=== PATIENT | female | born 1970 | race American Indian/Alaskan Native ===

== ENCOUNTER 2016-06-29 15:29 | Emergency (ER) | payer OTHER ==
[2016-06-30 00:48] VITALS: BP 131/64
--- NOTE | 2016-06-30 01:09 | Emergency Department Report ---
ED General Adult HPI - General Chief complaint: High BP Stated complaint: ELEV BP/SOB Time Seen by Provider: 06/30/16 00:48 Source: patient Mode of arrival: Ambulatory Limitations: No Limitations - History of Present Illness Initial comments: Patient complains of 2 day history of eye redness. She states the right is more than the left. She denies any vision changes she denies any drainage or discharge. Denies history of allergies in general. She states that she did have an episode yesterday and fatigued and had some difficulty with concentration for about an hour. Patient contributes both of these symptoms to her high blood pressure. She states she is on 3 drug regimen for this but continues to have elevated blood pressure. She reports a normal blood pressure being in the 160/to 90-100 range. She denies any headache she denies any chest pain at this time. She reports normal urination. She does have a primary doctor she follows with. Onset/Timin -: days(s) Location: eyes Radiation: non-radiation Severity scale (0 -10): 5 Quality: burning Consistency: constant Improves with: none Worsens with: none Associated Symptoms: denies: confusion, chest pain, cough, headaches Treatments Prior to Arrival: none - Related Data Home Medications Medication Instructions Recorded Confirmed Last Taken Famotidine [Pepcid] 40 mg PO QHS 06/30/16 06/30/16 06/29/16 Lisinopril [Zestril TAB] 20 mg PO QDAY 06/30/16 06/30/16 06/29/16 Pravastatin Sodium [Pravastatin] 10 mg PO QHS 06/30/16 06/30/16 06/28/16 amLODIPine [Norvasc] 5 mg PO DAILY 06/30/16 06/30/16 06/28/16 Previous Rx's Medication Instructions Recorded Last Taken Type Meclizine [Antivert] 25 mg PO TID PRN #10 tablet 02/26/16 06/29/16 Rx Erythromycin [Erythromycin Ophth 1 applic OU QID #1 tube 06/30/16 Unknown Rx Oint] Hydrochlorothiazide [HCTZ] 2 tab PO QDAY #60 tablet 06/30/16 Unknown Rx Loratadine [Claritin] 10 mg PO DAILY #20 tablet 06/30/16 Unknown Rx Allergies Allergy/AdvReac Type Severity Reaction Status Date / Time No Known Allergies Allergy Verified 06/29/16 17:04 ED Review of Systems ROS: Stated complaint: ELEV BP/SOB Other details as noted in HPI Constitutional: denies: chills, fever Eyes: eye pain ENT: denies: ear pain, throat pain Respiratory: denies: cough, shortness of breath, wheezing Cardiovascular: denies: chest pain, palpitations Endocrine: no symptoms reported, unexplained weight gain Gastrointestinal: denies: abdominal pain, nausea, diarrhea Genitourinary: denies: urgency, dysuria, discharge Musculoskeletal: other (mild leg swelling). denies: back pain, joint swelling, arthralgia Skin: denies: rash, lesions Neurological: denies: headache, weakness, paresthesias Psychiatric: denies: anxiety, depression Hematological/Lymphatic: denies: easy bleeding, easy bruising ED Past Medical Hx - Past Medical History Hx Hypertension: Yes Additional medical history: VERTIGO. MORBID OBESITY - Surgical History Past Surgical History?: No - Social History Smoking Status: Never Smoker Substance Use Type: None - Medications Home Medications: Home Medications Medication Instructions Recorded Confirmed Last Taken Type Meclizine [Antivert] 25 mg PO TID PRN #10 tablet 02/26/16 06/30/16 06/29/16 Rx Erythromycin [Erythromycin Ophth 1 applic OU QID #1 tube 06/30/16 Unknown Rx Oint] Famotidine [Pepcid] 40 mg PO QHS 06/30/16 06/30/16 06/29/16 History Hydrochlorothiazide [HCTZ] 2 tab PO QDAY #60 tablet 06/30/16 Unknown Rx Lisinopril [Zestril TAB] 20 mg PO QDAY 06/30/16 06/30/16 06/29/16 History Loratadine [Claritin] 10 mg PO DAILY #20 tablet 06/30/16 Unknown Rx Pravastatin Sodium [Pravastatin] 10 mg PO QHS 06/30/16 06/30/16 06/28/16 History amLODIPine [Norvasc] 5 mg PO DAILY 06/30/16 06/30/16 06/28/16 History ED Physical Exam - General Limitations: No Limitations General appearance: alert, in no apparent distress, obese (morbid) - Head Head exam: Present: atraumatic, normocephalic - Eye Eye exam: Present: normal appearance, PERRL, EOMI, other (mild scleral injection bilat with R>L. Fundoscopic exam with prominent vasculature. Weld disc cup margin.). Absent: scleral icterus, conjunctival injection, periorbital tenderness Pupils: Present: normal accommodation - ENT ENT exam: Present: normal orophraynx, mucous membranes moist - Neck Neck exam: Present: normal inspection - Respiratory Respiratory exam: Present: normal lung sounds bilaterally. Absent: respiratory distress - Cardiovascular Cardiovascular Exam: Present: regular rate, normal rhythm. Absent: systolic murmur, diastolic murmur, rubs, gallop - GI/Abdominal GI/Abdominal exam: Present: soft, normal bowel sounds - Extremities Exam Extremities exam: Present: normal inspection, pedal edema (trace) - Back Exam Back exam: Present: normal inspection - Neurological Exam Neurological exam: Present: alert, oriented X3 - Psychiatric Psychiatric exam: Present: normal affect, normal mood - Skin Skin exam: Present: warm, dry, intact, normal color. Absent: rash ED Course Vital Signs 06/29/16 06/30/16 06/30/16 16:57 00:45 01:43 Temperature 98.0 F 98.0 F Pulse Rate 89 79 Respiratory 18 20 18 Rate Blood Pressure 144/97 Blood Pressure 131/64 [Left] O2 Sat by Pulse 100 98 98 Oximetry - Reevaluation(s) Reevaluation #1: 06/30/16 02:10 Patient perseverates about her blood pressure here. I do not suspect this is the etiology of her eye redness. Believe me when I indicate this either. L her on an antihistamine as well as some lubrication with antibiotics. I really don't suspect an infectious etiology either. In regards to her blood pressure she is already on 3 drug regimen. I did encourage her to increase her hydrochlorothiazide from 25 mg to 50 mg daily. I did encourage her to follow- up with her physician for consideration of other medications. There is some funduscopic evidence of some chronic disease due to her hypertension. I did encourage her to follow up with ophthalmology as well at her convenience. Safe for home. Critical care attestation.: If time is entered above; I have spent that time in minutes in the direct care of this critically ill patient, excluding procedure time. ED Disposition Clinical Impression: Eye redness Hypertension Qualifiers: Hypertension type: essential hypertension Qualified Code(s): I10 - Essential ( primary) hypertension Disposition: DISCHARGED TO HOME OR SELFCARE Is pt being admited?: No Does the pt Need Aspirin: No Condition: Stable Instructions: Hypertension (ED) Additional Instructions: I want you to increase her hydrochlorothiazide from 25 mg daily to 50 mg daily. I have written a prescription for this. Please keep a log of your blood pressure at different times of the day. Follow with your physician for further evaluation and consideration of other medications. I would suggest that you try the ointment for the eyes for the next 3 days as well as the loratadine for possible allergic component. Prescriptions: Erythromycin [Erythromycin Ophth Oint] 1 applic OU QID #1 tube Hydrochlorothiazide [HCTZ] 2 tab PO QDAY #60 tablet Loratadine [Claritin] 10 mg PO DAILY #20 tablet Referrals: VALENTINO PORRAS MD, PHD [Primary Care Provider] - 3-5 Days Forms: Work/School Release Form(ED) Time of Disposition: 01:08
[2016-06-30] MEDS: CLARITIN PO ONE (01:42)
[2016-06-30] MEDS: ERYTHROMYCIN OPHTH OINT OU ONE (01:43)
== END 2016-06-30 01:48 | disposition home or self-care (01) ==
LOC: ED 15:29
DX: I10 Essential (primary) hypertension (principal); H57.8 Other specified disorders of eye and adnexa; M79.89 Other specified soft tissue disorders; E66.01 Morbid (severe) obesity due to excess calories
CPT/HCPCS: 99282

== ENCOUNTER 2017-05-14 08:57 | Emergency (ER) | payer OTHER ==
[2017-05-14 09:10] VITALS: BP 167/89
[2017-05-14] MEDS ORDERED: TORADOL IM ONE (09:39)
[2017-05-14] MEDS ORDERED: ULTRAM PO ONE (09:39)
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
--- NOTE | 2017-05-14 13:17 | XRay Report ---
CERVICAL SPINE RADIOGRAPHS INDICATION: Neck pain. COMPARISON: None similar. FINDINGS: AP, lateral, open mouth and swimmers view of the cervical spine, 5 projections demonstrate normal imaged dens with symmetric lateral masses, allowing for overlying structures. Few radiopaque dental fillings. Normal prevertebral soft tissues and airway. Slight cervical spine straightening, possibly positional versus spasm. C5-C6 disc narrowing and degenerative spurring noted. Normal remainder upper cervical disc heights. Assessment below C6 though suboptimal/obscured due to shoulder soft tissues. Clear visualized lung apices. CONCLUSION: No acute cervical spine radiographic abnormality, to the extent assessed, with C5-C6 degenerative changes noted. Please correlate. Thank you for the opportunity to participate in this patient's care.
== END 2017-05-14 11:02 | disposition home or self-care (01) ==
LOC: ED 08:57
DX: M54.89 Other dorsalgia (principal); I10 Essential (primary) hypertension; J44.9 Chronic obstructive pulmonary disease, unspecified; E66.01 Morbid (severe) obesity due to excess calories; V79.69XA Unspecified bus occupant injured in collision with other motor vehicles in traffic accident, initial encounter; Y93.89 Activity, other specified; Y92.89 Other specified places as the place of occurrence of the external cause; Y99.8 Other external cause status
CPT/HCPCS: 72040; 96372; 99283; J1885

== ENCOUNTER 2018-06-06 13:54 | Outpatient (CLI) | payer OTHER ==
--- NOTE | 2018-06-07 14:50 | Mammography Report ---
BILATERAL DIGITAL SCREENING MAMMOGRAM with CAD: 06/06/18 13:54:00 CLINICAL: Routine screening. COMPARISON:None available. FINDINGS: The breasts are almost entirely fatty. No mass, architectural distortion or suspicious calcifications. IMPRESSION: No mammographic evidence of malignancy. BI-RADS CATEGORY: 1 - - Negative RECOMMENDATION: Routine mammographic screening in one year. COMMENT: Patient follow-up letters are generated by our [employer] application.
== END 2018-06-06 13:55 | disposition home or self-care (01) ==
LOC: SPVWC 13:54
DX: Z12.31 Encounter for screening mammogram for malignant neoplasm of breast (principal)
CPT/HCPCS: 77067

== ENCOUNTER 2020-10-26 17:10 | Emergency (ER) | payer BC ==
--- NOTE | 2020-10-26 19:03 | Event Note ---
ED Screening Note Date of service: 10/26/20 Time: 19:02 ED Screening Note: 50-year-old female patient with history of kidney stones, pyelonephritis, hypertension, and BMI >30 presents to the emergency department complaints of nontraumatic right lower back pain with associated nausea for approximately 1 week. Patient states her symptoms are not consistent with prior kidney stones. Patient is postmenopausal. General: Awake, appropriately interactive, no acute distress. Neck: Supple. Full range of motion intact. Cardiovascular: Normal peripheral perfusion. Pulmonary: No respiratory distress. Patient is speaking normally without use of accessory muscles. Skin: No apparent rashes or lesions. Neurological: No facial asymmetry. Speech is clear. Follows commands. Patient is alert and oriented. Musculoskeletal: Moves all four extremities spontaneously with normal range of motion. Back: Right lower lumbar tenderness. Psych: Cooperative. Appropriate mood and affect. I have greeted and performed a focused rapid initial assessment of this patient. A comprehensive ED assessment and evaluation of the patient, analysis of all test results, and completion of the medical decision-making process will be conducted by additional ED providers. This initial assessment/diagnostic orders/ clinical plan/treatment(s) is/are subject to change based on patients health status, clinical progression and re-assessment. Further treatment and workup at subsequent clinical provider's discretion. Patient/guardian urged not to elope from the ED as their condition may be serious if not clinically assessed and managed.
[2020-10-26 19:32] LABS: Basophils % (Auto) 0.6 % (0.0-1.8); Eosinophils # (Auto) 0.1 K/mm3 (0.0-0.4); Eosinophils % (Auto) 1.3 % (0.0-4.3); Hematocrit 39.9 % (30.3-42.9); Hemoglobin 13.2 gm/dl (10.1-14.3); Lymphocytes % (Auto) 38.2 % (13.4-35.0); Mean Corpuscular HGB Conc 33 % (30-34); Mean Corpuscular Volume 87 fl (79-97); Monocytes # (Auto) 0.5 K/mm3 (0.0-0.8); Monocytes % (Auto) 6.9 % (0.0-7.3); Platelet Count 323 K/mm3 (140-440); Red Blood Count 4.59 M/mm3 (3.65-5.03); Red Cell Distribution Width 14.7 % (13.2-15.2)
[2020-10-26 19:41] LABS: Bilirubin,Urine NEG (Negative); Blood,Urine SM (Negative); Color,Urine Yellow (Yellow); Hyaline Casts,Urine 1 /LPF; Mucus,Urine FEW /HPF; Protein,Urine <15 mg/dL mg/dL (Negative); Urobilinogen,Urine < 2.0 mg/dL (<2.0)
[2020-10-26 19:52] LABS: BUN/Creatinine Ratio 18; Blood Urea Nitrogen 18 mg/dL (7-17); Calcium 9.1 mg/dL (8.4-10.2); Hemolysis Index 6
[2020-10-26] MEDS ORDERED: ONDANSETRON 4 MG ODT TAB PO ONE (20:42)
[2020-10-26] MEDS ORDERED: oxyCODONE /ACETAMINOPHEN 5-325MG TAB PO ONE (20:42)
--- NOTE | 2020-10-26 21:30 | Cat Scan Report ---
CT ABDOMEN AND PELVIS WITHOUT IV CONTRAST INDICATION: Right flank pain, nausea. COMPARISON: None available. TECHNIQUE: All CT scans at this facility use dose modulation, automated exposure control, iterative reconstructi on or weight based dosing, when appropriate, to reduce radiation dose to as low as reasonably achieva ble. FINDINGS: Lung Bases: No significant abnormality. Skeletal System: No acute abnormality. ABDOMEN: Liver: No significant abnormality. Gallbladder: No significant abnormality. Bile Ducts: No significant abnormality. Pancreas: No significant abnormality. Spleen: No significant abnormality. Adrenals: No significant abnormality. Right Kidney: No significant abnormality. Left Kidney: No significant abnormality. Upper GI tract: No significant abnormality. Lymph Nodes: No significant adenopathy. Aorta: No significant abnormality. Additional Findings: No significant abnormality. PELVIS: Colon: No acute abnormality. Urinary Bladder and Distal Ureters: No significant abnormality. Appendix: No significant abnormality. Lymph Nodes: No significant adenopathy. Additional Findings: Multiple punctate phleboliths are seen in the pelvis. IMPRESSION: 1. No intrarenal stones. No hydronephrosis. 2. There are punctate phleboliths in the pelvis in the region of the distal ureters. However, no def inite ureteral stone is seen. 3. There is mild right renal pelviectasis. This could be due to mild chronic UPJ obstruction. Signer Name: Kristian Scott MD Signed: 10/26/2020 9:26 PM Workstation Name: [id number]
--- NOTE | 2020-10-26 21:56 | Emergency Department Report ---
ED General Adult HPI - General Chief complaint: Abdominal Pain Stated complaint: SEVERE KIDNEY Time Seen by Provider: 10/26/20 20:20 Source: patient Mode of arrival: Ambulatory Limitations: No Limitations - History of Present Illness Initial comments: Patient is a 50-year-old female presents emergency room with complaints of right flank pain that began a week and a half ago. She has associated nausea. She denies any fever, vomiting, diarrhea, chest pain, shortness of breath, cough, abdominal pain, pelvic pain, vaginal bleeding, fall, injury, numbness, weakness, bowel or bladder incontinence. Past medical history of nephrolithiasis, hypertension, COPD, sleep apnea. No allergies to medications. Severity scale (0 -10): 8 - Related Data Home Medications Medication Instructions Recorded Confirmed Last Taken Pravastatin 1 tab PO QHS 07/20/15 07/20/15 07/19/15 Famotidine [Pepcid] 40 mg PO QHS 06/30/16 06/30/16 06/29/16 Pravastatin Sodium [Pravastatin] 10 mg PO QHS 06/30/16 06/30/16 06/28/16 amLODIPine 5 mg PO DAILY 06/30/16 06/30/16 06/28/16 lisinopriL [Zestril TAB] 20 mg PO QDAY 06/30/16 06/30/16 06/29/16 Previous Rx's Medication Instructions Recorded Last Taken Type lisinopriL [Zestril TAB] 20 mg PO QDAY #30 tablet 07/30/14 07/19/15 Rx Aspirin EC [Halfprin EC] 81 mg PO QDAY #30 tablet. 07/21/15 Unknown Rx amLODIPine 10 mg PO DAILY tablet 07/21/15 Unknown Rx Cyclobenzaprine [Flexeril] 10 mg PO TID PRN #15 tablet 11/04/15 Unknown Rx Ibuprofen [Motrin 800 MG tab] 800 mg PO Q8HR PRN #30 tablet 11/04/15 Unknown Rx Ketorolac [Toradol] 10 mg PO Q6H PRN #20 tablet 01/21/16 Unknown Rx Meclizine [Antivert] 25 mg PO TID PRN #10 tablet 02/26/16 06/29/16 Rx Erythromycin [Erythromycin Ophth 1 applic OU QID #1 tube 06/30/16 Unknown Rx Oint] Loratadine (Nf) [Claritin (Nf)] 10 mg PO DAILY #20 tablet 06/30/16 Unknown Rx hydroCHLOROthiazide [HCTZ] 2 tab PO QDAY #60 tablet 06/30/16 Unknown Rx Cyclobenzaprine [Flexeril] 10 mg PO TID PRN #10 tablet 05/14/17 Unknown Rx predniSONE [Deltasone] 20 mg PO DAILY #5 tablet 05/14/17 Unknown Rx traMADoL [Ultram] 50 mg PO Q6HR PRN #12 tablet 05/14/17 Unknown Rx Azithromycin [Zithromax Z-GRZEGORZ] 250 mg PO DAILY #6 tablet 03/06/18 Unknown Rx Benzonatate [Tessalon Perle] 100 mg PO Q6H PRN #20 capsule 03/06/18 Unknown Rx Ibuprofen [Motrin] 600 mg PO Q8H PRN #20 tablet 03/06/18 Unknown Rx Nystas/Diphen/Xyl Visc/Mylanta 15 ml MM Q6H PRN 5 Days ml 03/06/18 Unknown Rx [Magic Mouthwash] Naproxen [EC-Naprosyn] 500 mg PO BID PRN #14 tablet.dr 10/26/20 Unknown Rx methOCARBAMOL [Robaxin TAB] 500 mg PO BID PRN #14 tab 10/26/20 Unknown Rx traMADoL [Ultram 50 MG tab] 50 mg PO Q6HR PRN #10 tablet 10/26/20 Unknown Rx Allergies Allergy/AdvReac Type Severity Reaction Status Date / Time No Known Allergies Allergy Verified 05/14/17 09:04 ED Review of Systems ROS: Stated complaint: SEVERE KIDNEY Other details as noted in HPI Comment: All other systems reviewed and negative ED Past Medical Hx - Past Medical History Previous Medical History?: Yes Hx Hypertension: Yes Hx Congestive Heart Failure: No Hx Diabetes: No Hx Asthma: No Hx COPD: Yes Additional medical history: VERTIGO. MORBID OBESITY - Surgical History Past Surgical History?: No - Social History Smoking Status: Never Smoker - Medications Home Medications: Home Medications Medication Instructions Recorded Confirmed Last Taken Type lisinopriL [Zestril TAB] 20 mg PO QDAY #30 tablet 07/30/14 07/20/15 07/19/15 Rx Pravastatin 1 tab PO QHS 07/20/15 07/20/15 07/19/15 History Aspirin EC [Halfprin EC] 81 mg PO QDAY #30 tablet. 07/21/15 Unknown Rx amLODIPine 10 mg PO DAILY tablet 07/21/15 Unknown Rx Cyclobenzaprine [Flexeril] 10 mg PO TID PRN #15 tablet 11/04/15 Unknown Rx Ibuprofen [Motrin 800 MG tab] 800 mg PO Q8HR PRN #30 tablet 11/04/15 Unknown Rx Ketorolac [Toradol] 10 mg PO Q6H PRN #20 tablet 01/21/16 Unknown Rx Meclizine [Antivert] 25 mg PO TID PRN #10 tablet 02/26/16 06/30/16 06/29/16 Rx Erythromycin [Erythromycin Ophth 1 applic OU QID #1 tube 06/30/16 Unknown Rx Oint] Famotidine [Pepcid] 40 mg PO QHS 06/30/16 06/30/16 06/29/16 History Loratadine (Nf) [Claritin (Nf)] 10 mg PO DAILY #20 tablet 06/30/16 Unknown Rx Pravastatin Sodium [Pravastatin] 10 mg PO QHS 06/30/16 06/30/16 06/28/16 History amLODIPine 5 mg PO DAILY 06/30/16 06/30/16 06/28/16 History hydroCHLOROthiazide [HCTZ] 2 tab PO QDAY #60 tablet 06/30/16 Unknown Rx lisinopriL [Zestril TAB] 20 mg PO QDAY 06/30/16 06/30/16 06/29/16 History Cyclobenzaprine [Flexeril] 10 mg PO TID PRN #10 tablet 05/14/17 Unknown Rx predniSONE [Deltasone] 20 mg PO DAILY #5 tablet 05/14/17 Unknown Rx traMADoL [Ultram] 50 mg PO Q6HR PRN #12 tablet 05/14/17 Unknown Rx Azithromycin [Zithromax Z-GRZEGORZ] 250 mg PO DAILY #6 tablet 03/06/18 Unknown Rx Benzonatate [Tessalon Perle] 100 mg PO Q6H PRN #20 capsule 03/06/18 Unknown Rx Ibuprofen [Motrin] 600 mg PO Q8H PRN #20 tablet 03/06/18 Unknown Rx Nystas/Diphen/Xyl Visc/Mylanta 15 ml MM Q6H PRN 5 Days ml 03/06/18 Unknown Rx [Magic Mouthwash] Naproxen [EC-Naprosyn] 500 mg PO BID PRN #14 tablet. 10/26/20 Unknown Rx methOCARBAMOL [Robaxin TAB] 500 mg PO BID PRN #14 tab 10/26/20 Unknown Rx traMADoL [Ultram 50 MG tab] 50 mg PO Q6HR PRN #10 tablet 10/26/20 Unknown Rx ED Physical Exam - General Limitations: No Limitations General appearance: alert, in no apparent distress - Head Head exam: Present: atraumatic, normocephalic - Eye Eye exam: Present: normal appearance - ENT ENT exam: Present: mucous membranes moist - Respiratory Respiratory exam: Present: normal lung sounds bilaterally. Absent: respiratory distress, wheezes, rales, rhonchi, stridor, chest wall tenderness, accessory muscle use, decreased breath sounds, prolonged expiratory - Cardiovascular Cardiovascular Exam: Present: regular rate, normal rhythm, normal heart sounds. Absent: systolic murmur, diastolic murmur, rubs, gallop - GI/Abdominal GI/Abdominal exam: Present: soft, normal bowel sounds. Absent: distended, tenderness, guarding, rebound, rigid - Back Exam Back exam: Present: CVA tenderness (R). Absent: CVA tenderness (L) - Neurological Exam Neurological exam: Present: alert, oriented X3 - Psychiatric Psychiatric exam: Present: normal affect, normal mood - Skin Skin exam: Present: warm, dry, intact ED Course Vital Signs 10/26/20 10/26/20 10/26/20 17:34 21:12 22:44 Temperature 98.7 F 98.6 F Pulse Rate 84 72 Respiratory 20 20 20 Rate Blood Pressure 152/80 144/70 [Right] O2 Sat by Pulse 96 99 Oximetry 10/26/20 22:51 Temperature Pulse Rate Respiratory 20 Rate Blood Pressure [Right] O2 Sat by Pulse 99 Oximetry ED Medical Decision Making - Lab Data Result diagrams: 10/26/20 19:09 10/26/20 19:09 Lab Results 10/26/20 10/26/20 10/26/20 Range/Units 19:09 19:09 19:20 WBC 7.9 (4.5-11.0) K/mm3 RBC 4.59 (3.65-5.03) M/mm3 Hgb 13.2 (10.1-14.3) gm/dl Hct 39.9 (30.3-42.9) % MCV 87 (79-97) fl MCH 29 (28-32) pg MCHC 33 (30-34) % RDW 14.7 (13.2-15.2) % Plt Count 323 (140-440) K/mm3 Lymph % (Auto) 38.2 H (13.4-35.0) % [place] % (Auto) 6.9 (0.0-7.3) % Eos % (Auto) 1.3 (0.0-4.3) % Baso % (Auto) 0.6 (0.0-1.8) % Lymph # (Auto) 3.0 (1.2-5.4) K/mm3 [place] # (Auto) 0.5 (0.0-0.8) K/mm3 Eos # (Auto) 0.1 (0.0-0.4) K/mm3 Baso # (Auto) 0.0 (0.0-0.1) K/mm3 Seg Neutrophils % 53.0 (40.0-70.0) % Seg Neutrophils # 4.2 (1.8-7.7) K/mm3 Sodium 136 L (137-145) mmol/L Potassium 4.3 (3.6-5.0) mmol/L Chloride 99.0 (98-107) mmol/L Carbon Dioxide 25 (22-30) mmol/L Anion Gap 16 mmol/L BUN 18 H (7-17) mg/dL Creatinine 1.0 (0.6-1.2) mg/dL Estimated GFR > 60 ml/min BUN/Creatinine Ratio 18 % Glucose 91 (65-100) mg/dL Calcium 9.1 (8.4-10.2) mg/dL Urine Color Yellow (Yellow) Urine Turbidity Cloudy (Clear) Urine pH 5.0 (5.0-7.0) Ur Specific [place] 1.020 (1.003-1.030) Urine Protein <15 mg/dl (Negative) mg/dL Urine Glucose (UA) Neg (Negative) mg/dL Urine Ketones Neg (Negative) mg/dL Urine Blood Sm (Negative) Urine Nitrite Neg (Negative) Urine Bilirubin Neg (Negative) Urine Urobilinogen < 2.0 (<2.0) mg/dL Ur Leukocyte Esterase Sm (Negative) Urine WBC (Auto) 5.0 (0.0-6.0) /HPF Urine RBC (Auto) 5.0 (0.0-6.0) /HPF U Epithel Cells (Auto) 24.0 H (0-13.0) /HPF Hyaline Casts 1 /LPF Urine Mucus Few /HPF - Radiology Data Radiology results: report reviewed Ordering Physician: GOLD SADLER Date of Service: 10/26/20 Procedure(s): CT abdomen pelvis wo con Accession Number(s): [id number] cc: GOLD SADLER CT ABDOMEN AND PELVIS WITHOUT IV CONTRAST INDICATION: Right flank pain, nausea. COMPARISON: None available. TECHNIQUE: All CT scans at this facility use dose modulation, automated exposure control, iterative reconstruction or weight based dosing, when appropriate, to reduce radiation dose to as low as reasonably achievable. FINDINGS: Lung Bases: No significant abnormality. Skeletal System: No acute abnormality. ABDOMEN: Liver: No significant abnormality. Gallbladder: No significant abnormality. Bile Ducts: No significant abnormality. Pancreas: No significant abnormality. Spleen: No significant abnormality. Adrenals: No significant abnormality. Right Kidney: No significant abnormality. Left Kidney: No significant abnormality. Upper GI tract: No significant abnormality. Lymph Nodes: No significant adenopathy. Aorta: No significant abnormality. Additional Findings: No significant abnormality. PELVIS: Colon: No acute abnormality. Urinary Bladder and Distal Ureters: No significant abnormality. Appendix: No significant abnormality. Lymph Nodes: No significant adenopathy. Additional Findings: Multiple punctate phleboliths are seen in the pelvis. IMPRESSION: 1. No intrarenal stones. No hydronephrosis. 2. There are punctate phleboliths in the pelvis in the region of the distal ureters. However, no definite ureteral stone is seen. 3. There is mild right renal pelviectasis. This could be due to mild chronic UPJ obstruction. Signer Name: Kristian Scott MD Signed: 10/26/2020 9:26 PM Workstation Name: [id number] Transcribed By: JESSIE Dictated By: Kristian Scott MD Electronically Authenticated By: Kristian Scott MD Signed Date/Time: 10/26/202125 DD/ 21 TD/TT: Print Cancel - Medical Decision Making Patient is a 50-year-old female presents emergency room with complaints of right flank pain that began a week and a half ago. She has associated nausea. She denies any fever, vomiting, diarrhea, chest pain, shortness of breath, cough, abdominal pain, pelvic pain, vaginal bleeding, fall, injury, numbness, weakness, bowel or bladder incontinence. Past medical history of nephrolithiasis, hypertension, COPD, sleep apnea. No allergies to medications. Vitals are stable. On exam patient has right CVA tenderness. Labs are stable. UA without evidence of UTI. CT abdomen pelvis without contrast 1. No intrarenal stones. No hydronephrosis. 2. There are punctate phleboliths in the pelvis in the region of the distal ureters. However, no definite ureteral stone is seen. 3. There is mild right renal pelviectasis. This could be due to mild chronic UPJ obstruction. Discussed all results with patient the importance of urology follow-up. Discussed return precautions. Patient given prescription for medications. Advised patient Please take medication as prescribed as needed. Increase your water intake. Do not drive or operate machinery when taking muscle ask Robaxin or severe pain medication tramadol. Follow-up with your primary care doctor. Follow-up with a urologist. Return to emergency room for any new or worsening symptoms. Critical care attestation.: If time is entered above; I have spent that time in minutes in the direct care of this critically ill patient, excluding procedure time. ED Disposition Clinical Impression: Right flank pain, Phlebolith, Renal pelviectasis Disposition: DC- TO HOME OR SELFCARE Is pt being admited?: No Does the pt Need Aspirin: No Condition: Stable Instructions: Flank Pain, Adult, [id number], Abdominal Pain (ED) Additional Instructions: Please take medication as prescribed as needed. Increase your water intake. Do not drive or operate machinery when taking muscle ask Robaxin or severe pain medication tramadol. Follow-up with your primary care doctor. Follow-up with a urologist. Return to emergency room for any new or worsening symptoms. Prescriptions: Naproxen [EC-Naprosyn] 500 mg PO BID PRN #14 tablet. PRN Reason: pain methOCARBAMOL [Robaxin TAB] 500 mg PO BID PRN #14 tab PRN Reason: muscle spasm/pain traMADoL [Ultram 50 MG tab] 50 mg PO Q6HR PRN #10 tablet PRN Reason: Pain , Severe (7-10) Referrals: MEGAN WEBSTER MD [Staff Physician] - 2-3 Days your, primary care doctor [Other] - 2-3 Days Time of Disposition: 21:54 Print Language: LATVIAN
[2020-10-26 22:45] VITALS: BP 144/70
== END 2020-10-27 00:21 | disposition home or self-care (01) ==
LOC: ED 17:10
DX: I87.8 Other specified disorders of veins (principal); N13.30 Unspecified hydronephrosis; I10 Essential (primary) hypertension; E66.8 Other obesity; Z98.890 Other specified postprocedural states; Z79.899 Other long term (current) drug therapy
CPT/HCPCS: 36415; 74176; 80048; 81001; 85025; 99284; Q0162

== ENCOUNTER 2021-04-30 19:57 | Emergency (ER) | payer BC ==
[2021-04-30] MEDS ORDERED: ACETAMINOPHEN 325 MG TAB PO ONE (22:44)
[2021-04-30] MEDS ORDERED: METOCLOPRAMIDE 10 MG TAB PO ONE (22:44)
--- NOTE | 2021-04-30 22:45 | Emergency Department Report ---
ED General Adult HPI - General Chief complaint: High BP Stated complaint: HIGH BP PUI?: No Time Seen by Provider: 04/30/21 21:34 Source: patient, RN notes reviewed, old records reviewed Mode of arrival: Ambulatory Limitations: No Limitations - History of Present Illness Initial comments: Primary CARE doctor: Dr. Bear; [facility] Past medical history: Morbid obesity, hypertension, high cholesterol, diabetes, depression/anxiety. Home medications include Tylenol, duloxetine, lisinopril, chlorthalidone, Flomax, tramadol, Colace, clonazepam, Claritin, Robaxin, Naprosyn, Metformin, and pravastatin. She also has a history of chronic lower extremity swelling, obstructive sleep apnea, compliant with CPAP, and reports that a few months ago, she was treated for right-sided kidney obstruction at [place], requiring stent, which was subsequently removed. She reports that she was seen by her outpatient urologist recently this week, and had a bladder and kidney ultrasound performed, demonstrating that the right kidney was "functioning at 31%, and left kidney functioning at 61%." The patient presents to the ER today with a complaint of bilateral lower extremity swelling, which has been present for a few months. The patient has a mild headache which is present for about a week. The headache is global, not sudden or thunderclap in nature, not maximal in intensity, and not described as the worst headache of her life. There is no loss of vision. There is no chest pain. There is no vomiting. There is no loss of taste or smell. Denies dysuria. Denies abdominal pain. Reports compliance with her medications. Denies travel, surgery, immobilization, DVT/PE risk factors. Her primary complaint today is high blood pressure, as well as bilateral lower extremity swelling -: Gradual, days(s), week(s), month(s) Location: left, right, lower extremity Consistency: constant Improves with: none Worsens with: none - Related Data Home Medications Medication Instructions Recorded Confirmed Last Taken Pravastatin 1 tab PO QHS 07/20/15 07/20/15 07/19/15 Famotidine [Pepcid] 40 mg PO QHS 06/30/16 06/30/16 06/29/16 Pravastatin Sodium [Pravastatin] 10 mg PO QHS 02/07/17 02/07/17 02/05/17 amLODIPine 5 mg PO DAILY 06/30/16 06/30/16 06/28/16 lisinopriL [Zestril TAB] 20 mg PO QDAY 06/30/16 06/30/16 06/29/16 Previous Rx's Medication Instructions Recorded Last Taken Type lisinopriL [Zestril TAB] 20 mg PO QDAY #30 tablet 07/30/14 07/19/15 Rx Aspirin EC [Halfprin EC] 81 mg PO QDAY #30 tablet. 07/21/15 Unknown Rx amLODIPine 10 mg PO DAILY tablet 07/21/15 Unknown Rx Cyclobenzaprine [Flexeril] 10 mg PO TID PRN #15 tablet 11/04/15 Unknown Rx Ibuprofen [Motrin 800 MG tab] 800 mg PO Q8HR PRN #30 tablet 11/04/15 Unknown Rx Ketorolac [Toradol] 10 mg PO Q6H PRN #20 tablet 01/21/16 Unknown Rx Meclizine [Antivert] 25 mg PO TID PRN #10 tablet 02/26/16 06/29/16 Rx Erythromycin [Erythromycin Ophth 1 applic OU QID #1 tube 06/30/16 Unknown Rx Oint] Loratadine (Nf) [Claritin (Nf)] 10 mg PO DAILY #20 tablet 06/30/16 Unknown Rx hydroCHLOROthiazide [HCTZ] 2 tab PO QDAY #60 tablet 06/30/16 Unknown Rx Cyclobenzaprine [Flexeril] 10 mg PO TID PRN #10 tablet 05/14/17 Unknown Rx predniSONE [Deltasone] 20 mg PO DAILY #5 tablet 05/14/17 Unknown Rx traMADoL [Ultram] 50 mg PO Q6HR PRN #12 tablet 05/14/17 Unknown Rx Azithromycin [Zithromax Z-GRZEGORZ] 250 mg PO DAILY #6 tablet 03/06/18 Unknown Rx Benzonatate [Tessalon Perle] 100 mg PO Q6H PRN #20 capsule 03/06/18 Unknown Rx Ibuprofen [Motrin] 600 mg PO Q8H PRN #20 tablet 03/06/18 Unknown Rx Nystas/Diphen/Xyl Visc/Mylanta 15 ml MM Q6H PRN 5 Days ml 03/06/18 Unknown Rx [Magic Mouthwash] Naproxen [EC-Naprosyn] 500 mg PO BID PRN #14 tablet. 10/26/20 Unknown Rx methOCARBAMOL [Robaxin TAB] 500 mg PO BID PRN #14 tab 10/26/20 Unknown Rx traMADoL [Ultram 50 MG tab] 50 mg PO Q6HR PRN #10 tablet 10/26/20 Unknown Rx Allergies Allergy/AdvReac Type Severity Reaction Status Date / Time No Known Allergies Allergy Verified 05/14/17 09:04 ED Review of Systems ROS: Stated complaint: HIGH BP Other details as noted in HPI Constitutional: denies: fever Eyes: denies: eye discharge Respiratory: denies: cough Cardiovascular: edema. denies: chest pain Gastrointestinal: denies: abdominal pain, nausea, vomiting Genitourinary: denies: dysuria Musculoskeletal: myalgia Neurological: headache. denies: weakness ED Past Medical Hx - Past Medical History Previous Medical History?: Yes Hx Hypertension: Yes Hx Congestive Heart Failure: No Hx Diabetes: No Hx Asthma: No Hx COPD: Yes Additional medical history: VERTIGO. MORBID OBESITY - Surgical History Past Surgical History?: Yes Hx Coronary Stent: Yes (2020) - Social History Smoking Status: Never Smoker - Medications Home Medications: Home Medications Medication Instructions Recorded Confirmed Last Taken Type lisinopriL [Zestril TAB] 20 mg PO QDAY #30 tablet 07/30/14 07/20/15 07/19/15 Rx Pravastatin 1 tab PO QHS 07/20/15 07/20/15 07/19/15 History Aspirin EC [Halfprin EC] 81 mg PO QDAY #30 tablet. 07/21/15 Unknown Rx amLODIPine 10 mg PO DAILY tablet 07/21/15 Unknown Rx Cyclobenzaprine [Flexeril] 10 mg PO TID PRN #15 tablet 11/04/15 Unknown Rx Ibuprofen [Motrin 800 MG tab] 800 mg PO Q8HR PRN #30 tablet 11/04/15 Unknown Rx Ketorolac [Toradol] 10 mg PO Q6H PRN #20 tablet 01/21/16 Unknown Rx Meclizine [Antivert] 25 mg PO TID PRN #10 tablet 02/26/16 06/30/16 06/29/16 Rx Erythromycin [Erythromycin Ophth 1 applic OU QID #1 tube 06/30/16 Unknown Rx Oint] Famotidine [Pepcid] 40 mg PO QHS 06/30/16 06/30/16 06/29/16 History Loratadine (Nf) [Claritin (Nf)] 10 mg PO DAILY #20 tablet 06/30/16 Unknown Rx Pravastatin Sodium [Pravastatin] 10 mg PO QHS 06/30/16 06/30/16 06/28/16 History amLODIPine 5 mg PO DAILY 06/30/16 06/30/16 06/28/16 History hydroCHLOROthiazide [HCTZ] 2 tab PO QDAY #60 tablet 06/30/16 Unknown Rx lisinopriL [Zestril TAB] 20 mg PO QDAY 06/30/16 06/30/16 06/29/16 History Cyclobenzaprine [Flexeril] 10 mg PO TID PRN #10 tablet 05/14/17 Unknown Rx predniSONE [Deltasone] 20 mg PO DAILY #5 tablet 05/14/17 Unknown Rx traMADoL [Ultram] 50 mg PO Q6HR PRN #12 tablet 05/14/17 Unknown Rx Azithromycin [Zithromax Z-GRZEGORZ] 250 mg PO DAILY #6 tablet 03/06/18 Unknown Rx Benzonatate [Tessalon Perle] 100 mg PO Q6H PRN #20 capsule 03/06/18 Unknown Rx Ibuprofen [Motrin] 600 mg PO Q8H PRN #20 tablet 03/06/18 Unknown Rx Nystas/Diphen/Xyl Visc/Mylanta 15 ml MM Q6H PRN 5 Days ml 03/06/18 Unknown Rx [Magic Mouthwash] Naproxen [EC-Naprosyn] 500 mg PO BID PRN #14 tablet.dr 10/26/20 Unknown Rx methOCARBAMOL [Robaxin TAB] 500 mg PO BID PRN #14 tab 10/26/20 Unknown Rx traMADoL [Ultram 50 MG tab] 50 mg PO Q6HR PRN #10 tablet 10/26/20 Unknown Rx ED Physical Exam - General Limitations: No Limitations General appearance: alert, in no apparent distress, obese - Head Head exam: Present: atraumatic, normocephalic - Eye Eye exam: Present: normal appearance, EOMI. Absent: nystagmus - ENT ENT exam: Present: normal exam, normal orophraynx, mucous membranes moist, normal external ear exam - Neck Neck exam: Present: normal inspection, full ROM. Absent: tenderness, meningismus - Respiratory Respiratory exam: Present: decreased breath sounds. Absent: respiratory distress, wheezes, rales, rhonchi, stridor - Cardiovascular Cardiovascular Exam: Present: regular rate, normal rhythm, normal heart sounds. Absent: bradycardia, tachycardia, irregular rhythm, systolic murmur, diastolic murmur, rubs, gallop - GI/Abdominal GI/Abdominal exam: Present: soft. Absent: distended, tenderness, guarding, rebound, rigid - Extremities Exam Extremities exam: Present: normal inspection, full ROM, pedal edema (2-3+ edema in the bilateral lower extremities), other (2+ pulses noted in the bilateral upper and lower extremities. There is no palpable cord. negative Homans sign. Muscular compartments are soft. The pelvis is stable.). Absent: calf t enderness - Back Exam Back exam: Present: normal inspection. Absent: tenderness, CVA tenderness (R), CVA tenderness (L), paraspinal tenderness, vertebral tenderness - Neurological Exam Neurological exam: Present: alert, oriented X3, other (No facial droop. Tongue midline. Extraocular movements intact bilaterally. Facial sensation intact to light touch in V1, V2, V3 distribution bilaterally. 5 and a 5 strength in 4 extremities. Sensation intact to light touch in 4 extremities.). Absent: motor sensory deficit - Psychiatric Psychiatric exam: Present: normal affect, normal mood - Skin Skin exam: Present: warm, dry, intact, normal color. Absent: rash ED Course Vital Signs 04/30/21 04/30/21 20:00 21:14 Temperature 97.8 F Pulse Rate 94 H 78 Respiratory 18 20 Rate Blood Pressure 148/89 Blood Pressure 145/90 [Right] O2 Sat by Pulse 91 100 Oximetry - Reevaluation(s) Reevaluation #1: 04/30/21 23:30 Differential diagnosis, including but not limited to: Morbid obesity, dependent edema, lymphedema, renal insufficiency, hepatic insufficiency, DVT, migraine headache, tension headache and cluster headache Assessment and plan: 50-year-old female, who presents to the ER today with a primary complaint of lower extremity swelling which is present for months. I suspect that this is likely secondary to dependent versus lymphedema, likely secondary to chronic morbid obesity. She is on a number of antihypertensive med ications, blood pressure acceptable at this time, she reports that she is going to shortly follow-up with her outpatient primary care doctor in the next few days. She has a GCS of 15, denies travel, surgery, immobilization, DVT/PE risk factors, I think a DVT is very unlikely. On room air, saturating 100% while resting, reports that she does have known chronic desaturations with ambulation. Chest x-ray to my interpretation appears to be clear, and lung sounds are clear. I suspect that this is an underlying manifestation of the patient's chronic morbidly obese body habitus. We discussed diet, lifestyle, and bariatric surgery as possibilities for intervention. She does report that her outpatient electric meter setter, Dr Perales, had discussed bariatric surgery with her. We will obtain x-ray of the chest, laboratory studies, lower extremity DVT study, and reassess after initial data points. 05/01/21 01:03 Patient seen and reexamined. DVT study negative. Chest x-ray negative. Laboratory studies nonactionable. No respiratory distress at this time. While resting, saturating above 95%. Desaturation with ambulation likely secondary to morbid obesity, deconditioning, and sleep apnea/obstructive hypoventilation syndrome. Patient counseled on significance of findings, need to lose weight, follow-up with outpatient primary care. She is also interested in pursuing a bariatric surgical consultation, so we will provide her with that information. All questions answered. Return precautions reviewed. ED Medical Decision Making - Lab Data Result diagrams: 04/30/21 23:08 04/30/21 23:08 Vital Signs 04/30/21 04/30/21 20:00 21:14 Temperature 97.8 F Pulse Rate 94 H 78 Respiratory 18 20 Rate Blood Pressure 148/89 Blood Pressure 145/90 [Right] O2 Sat by Pulse 91 100 Oximetry Vital Signs 04/30/21 04/30/21 20:00 21:14 Temperature 97.8 F Pulse Rate 94 H 78 Respiratory 18 20 Rate Blood Pressure 148/89 Blood Pressure 145/90 [Right] O2 Sat by Pulse 91 100 Oximetry Lab Results 04/30/21 04/30/21 04/30/21 Range/Units 23:08 23:08 23:08 WBC 8.2 (4.5-11.0) K/mm3 RBC 4.85 (3.65-5.03) M/mm3 Hgb 13.4 (10.1-14.3) gm/dl Hct 43.4 H (30.3-42.9) % MCV 89 (79-97) fl MCH 28 (28-32) pg MCHC 31 (30-34) % RDW 15.5 H (13.2-15.2) % Plt Count 325 (140-440) K/mm3 Lymph % (Auto) 48.8 H (13.4-35.0) % Lipscomb % (Auto) 6.7 (0.0-7.3) % Eos % (Auto) 1.9 (0.0-4.3) % Baso % (Auto) 0.9 (0.0-1.8) % Lymph # (Auto) 4.0 (1.2-5.4) K/mm3 Lipscomb # (Auto) 0.6 (0.0-0.8) K/mm3 Eos # (Auto) 0.2 (0.0-0.4) K/mm3 Baso # (Auto) 0.1 (0.0-0.1) K/mm3 Seg Neutrophils % 41.7 (40.0-70.0) % Seg Neutrophils # 3.4 (1.8-7.7) K/mm3 PT 13.1 (12.2-14.9) Sec. INR 0.89 (0.87-1.13) Sodium 137 (137-145) mmol/L Potassium 4.3 (3.6-5.0) mmol/L Chloride 97.5 L (98-107) mmol/L Carbon Dioxide 26 (22-30) mmol/L Anion Gap 18 mmol/L BUN 16 (7-17) mg/dL Creatinine 1.0 (0.6-1.2) mg/dL Estimated GFR > 60 ml/min BUN/Creatinine Ratio 16 % Glucose 103 H (65-100) mg/dL Calcium 9.4 (8.4-10.2) mg/dL Total Bilirubin 0.90 (0.1-1.2) mg/dL AST 18 (5-40) units/L ALT 12 (7-56) units/L Alkaline Phosphatase 118 (35-129) units/L NT-Pro-B Natriuret Pep 26.60 (0-450) pg/mL Total Protein 7.9 (6.3-8.2) g/dL Albumin 4.4 (3.9-5) g/dL Albumin/Globulin Ratio 1.3 % TSH (0.270-4.200) mlU/mL 04/30/21 Range/Units 23:08 WBC (4.5-11.0) K/mm3 RBC (3.65-5.03) M/mm3 Hgb (10.1-14.3) gm/dl Hct (30.3-42.9) % MCV (79-97) fl MCH (28-32) pg MCHC (30-34) % RDW (13.2-15.2) % Plt Count (140-440) K/mm3 Lymph % (Auto) (13.4-35.0) % Lipscomb % (Auto) (0.0-7.3) % Eos % (Auto) (0.0-4.3) % Baso % (Auto) (0.0-1.8) % Lymph # (Auto) (1.2-5.4) K/mm3 Lipscomb # (Auto) (0.0-0.8) K/mm3 Eos # (Auto) (0.0-0.4) K/mm3 Baso # (Auto) (0.0-0.1) K/mm3 Seg Neutrophils % (40.0-70.0) % Seg Neutrophils # (1.8-7.7) K/mm3 PT (12.2-14.9) Sec. INR (0.87-1.13) Sodium (137-145) mmol/L Potassium (3.6-5.0) mmol/L Chloride (98-107) mmol/L Carbon Dioxide (22-30) mmol/L Anion Gap mmol/L BUN (7-17) mg/dL Creatinine (0.6-1.2) mg/dL Estimated GFR ml/min BUN/Creatinine Ratio % Glucose (65-100) mg/dL Calcium (8.4-10.2) mg/dL Total Bilirubin (0.1-1.2) mg/dL AST (5-40) units/L ALT (7-56) units/L Alkaline Phosphatase (35-129) units/L NT-Pro-B Natriuret Pep (0-450) pg/mL Total Protein (6.3-8.2) g/dL Albumin (3.9-5) g/dL Albumin/Globulin Ratio % TSH 3.430 (0.270-4.200) mlU/mL - Radiology Data Radiology results: pending, report reviewed, image reviewed XR chest routine 2V INDICATION / CLINICAL INFORMATION: lower ext swelling. COMPARISON: 03/06/2018. FINDINGS: SUPPORT DEVICES: None. HEART /PULMONARY VASCULATURE: Heart size is upper normal. No significant pulmonary vasculature congestion. LUNGS / PLEURA: No significant pulmonary or pleural abnormality. No pneumothorax. ADDITIONAL FINDINGS: No significant additional findings. IMPRESSION: 1. No acute findings. Signer Name: Harmeet Avina MD Signed: 04/30/2021 10:32 PM Workstation Name: [id number] DUPLEX DOPPLER LOWER EXTREMITY VEINS, BILATERAL INDICATION / CLINICAL INFORMATION: lower ext swelling. TECHNIQUE: Duplex doppler imaging was performed through the veins of both lower extremities using venous compression and other maneuvers. COMPARISON: None available. FINDINGS: RIGHT COMMON FEMORAL VEIN: Negative. RIGHT FEMORAL VEIN: Negative. RIGHT POPLITEAL VEIN: Negative. RIGHT CALF VEINS: Negative. LEFT COMMON FEMORAL VEIN: Negative. LEFT FEMORAL VEIN: Negative. LEFT POPLITEAL VEIN: Negative. LEFT CALF VEINS: Negative. ADDITIONAL FINDINGS: None. IMPRESSION: 1. No sonographic evidence for DVT in either lower extremity. Signer Name: Harmeet Avina MD Signed: 11:54 PM Workstation Name: [id number] Critical care attestation.: If time is entered above; I have spent that time in minutes in the direct care of this critically ill patient, excluding procedure time. ED Disposition Clinical Impression: Swelling of lower extremity, Morbid obesity with BMI of 70 and over, adult, Obstructive sleep apnea, Headache Disposition: 01 HOME / SELF CARE / HOMELESS Is pt being admited?: No Does the pt Need Aspirin: No Condition: Good Instructions: Lymphedema Additional Instructions: As we discussed, symptoms likely coming from lymphedema/dependent edema. First- line treatment will be aggressive weight loss. Patient may follow-up with bariatric surgeon, Dr. Loera, for an outpatient bariatric surgical consultation. Ideally, should have this consultation within the next 2 to 4 weeks. Recommend that patient exercise as tolerated, lose weight aggressively, continue current outpatient medications. Patient may take [id number] Tylenol/ibuprofen as needed for physical pain, or take prescribed Naprosyn as needed for physical pain. Recommend that patient continue current outpatient medications, and follow-up with her outpatient primary care doctor within the next month. Patient may also purchase [id number] compression stockings to assist with lower extremity swelling. We expect that it will take a few months to a few years for patient's lower extremity swelling to improve. Please return to the emergency room right away with new pain, worsened pain, migration of pain, projectile vomiting, change in mental status, confusion, inability tolerate liquid feeds, new, worsened or different symptoms not present on the initial emergency room evaluation. Referrals: HUGH LOERA MD [Staff Physician] - as needed Forms: Work/School Release Form(ED)
--- NOTE | 2021-04-30 23:36 | XRay Report ---
XR chest routine 2V INDICATION / CLINICAL INFORMATION: lower ext swelling. COMPARISON: 03/06/2018. FINDINGS: SUPPORT DEVICES: None. HEART /PULMONARY VASCULATURE: Heart size is upper normal. No significant pulmonary vasculature conges tion. LUNGS / PLEURA: No significant pulmonary or pleural abnormality. No pneumothorax. ADDITIONAL FINDINGS: No significant additional findings. IMPRESSION: 1. No acute findings. Signer Name: Harmeet Avina MD Signed: 04/30/2021 11:32 PM Workstation Name: [id number]
[2021-04-30 23:44] LABS: Basophils # (Auto) 0.1 K/mm3 (0.0-0.1); Eosinophils # (Auto) 0.2 K/mm3 (0.0-0.4); Eosinophils % (Auto) 1.9 % (0.0-4.3); Monocytes # (Auto) 0.6 K/mm3 (0.0-0.8); Monocytes % (Auto) 6.7 % (0.0-7.3)
[2021-04-30 23:50] LABS: Alanine Aminotransferase 12 units/L (7-56); Albumin 4.4 g/dL (3.9-5); BUN/Creatinine Ratio 16; Blood Urea Nitrogen 16 mg/dL (7-17); Calcium 9.4 mg/dL (8.4-10.2); Hematocrit 43.4 % (30.3-42.9); Hemoglobin 13.4 gm/dl (10.1-14.3); Hemolysis Index 26; Lymphocytes % (Auto) 48.8 % (13.4-35.0); Mean Corpuscular HGB Conc 31 % (30-34); Mean Corpuscular Volume 89 fl (79-97); Platelet Count 325 K/mm3 (140-440); Red Blood Count 4.85 M/mm3 (3.65-5.03); Red Cell Distribution Width 15.5 % (13.2-15.2)
[2021-04-30 23:51] LABS: Basophils % (Auto) 0.9 % (0.0-1.8)
[2021-04-30 23:55] LABS: INR 0.89 (0.87-1.13)
--- NOTE | 2021-05-01 00:58 | Vascular Lab Report ---
DUPLEX DOPPLER LOWER EXTREMITY VEINS, BILATERAL INDICATION / CLINICAL INFORMATION: lower ext swelling. TECHNIQUE: Duplex doppler imaging was performed through the veins of both lower extremities using venous jatinder louie and other maneuvers. COMPARISON: None available. FINDINGS: RIGHT COMMON FEMORAL VEIN: Negative. RIGHT FEMORAL VEIN: Negative. RIGHT POPLITEAL VEIN: Negative. RIGHT CALF VEINS: Negative. LEFT COMMON FEMORAL VEIN: Negative. LEFT FEMORAL VEIN: Negative. LEFT POPLITEAL VEIN: Negative. LEFT CALF VEINS: Negative. ADDITIONAL FINDINGS: None. IMPRESSION: 1. No sonographic evidence for DVT in either lower extremity. Signer Name: Harmeet Avina MD Signed: 05/01/2021 12:54 AM Workstation Name: [id number]
[2021-05-01 01:49] VITALS: BP 140/78
== END 2021-05-01 01:49 | disposition home or self-care (01) ==
LOC: ED 19:57
DX: R22.43 Localized swelling, mass and lump, lower limb, bilateral (principal); E66.01 Morbid (severe) obesity due to excess calories; G47.30 Sleep apnea, unspecified; R79.1 Abnormal coagulation profile; R51.9 Headache, unspecified; I10 Essential (primary) hypertension; J44.9 Chronic obstructive pulmonary disease, unspecified; Z79.899 Other long term (current) drug therapy; Z68.45 Body mass index [BMI] 70 or greater, adult
CPT/HCPCS: 36415; 71046; 80053; 83880; 84443; 84702; 85025; 85610; 93970; 99284

== ENCOUNTER 2022-01-01 11:21 | Outpatient (CLI) | payer BC ==
--- NOTE | 2022-01-01 16:44 | Mammography Report ---
DIGITAL SCREENING MAMMOGRAM WITH CAD, 01/01/2022 CLINICAL INFORMATION / INDICATION: Routine screening mammography. SCREENING TECHNIQUE: Digital bilateral 2D mammography was obtained in the craniocaudal and mediolateral obliqu e projections. This examination was interpreted with the benefit of Computer-Aided Detection analysis . COMPARISON: 06/06/2018 FINDINGS: Breast Density: There are scattered areas of fibroglandular density. No dominant mass, suspicious calcifications, or architectural distortion in either breast. IMPRESSION: No mammographic evidence of malignancy. Follow up recommendation: Routine yearly screening mammogram. BI-RADS Category 1: NEGATIVE A "normal" or negative report should not discourage follow up or biopsy of a clinically significant f inding. A written summary of these findings will be mailed to the patient. The patient will be entered into a mammography reporting system which will generate a reminder letter for the patient's next appointmen t at the appropriate interval. The [employer] recommends yearly mammograms starting at age 40 and continuing as l kandi as a woman is in good health. Breast MRI is recommended for women with an approximate 20-25% or greater lifetime risk of breast cancer, including women with a strong family history of breast or ova apstor cancer or who have been treated for Hodgkin's disease. Signer Name: Jonny Hernandes MD Signed: 01/01/2022 4:40 PM Workstation Name: [id number]
== END 2022-01-01 11:22 | disposition home or self-care (01) ==
LOC: MAMMO 11:21
PROVIDERS: ATTEND Family Medicine
DX: Z12.31 Encounter for screening mammogram for malignant neoplasm of breast (principal)
CPT/HCPCS: 77067